=== PATIENT | female | born 1995 | race Caucasian/White ===

== ENCOUNTER 2021-04-14 14:06 | Outpatient (REF) | payer OTHER, SELFPAY ==
--- NOTE | ~2021-04-14 | US_ITS ---
EXAMINATION: US PELVIS CLINICAL INFORMATION: Pelvic pain COMPARISON: None TECHNIQUE: Ultrasound of the pelvis is performed using both transabdominal and transvaginal transducers along with Doppler. Transvaginal imaging is performed due to inadequate visualization transabdominally. FINDINGS: The uterus is anteverted and measures 8.3 x 3.3 x 5.2 cm in dimension. No focal uterine lesion is seen. Endometrial thickness is normal measuring 0.7 cm. The ovaries are normal-appearing. The right ovary measures 3.7 x 2.2 x 2.3 cm. The left ovary measures 3.7 x 1.7 x 2.6 cm. There is a small amount of fluid in the pelvis. US/US pelvic and transvaginal IMPRESSION: Normal pelvic ultrasound.
[2021-04-14 16:26] LABS: MANUAL DIFF FLAG NO
[2021-04-14 16:32] LABS: Basophils Percent Auto 0.4 % (0-2); Eosinophils Absolute Auto 0.1 X10*3/uL (0.0-0.4); Eosinophils Percent Auto 0.5 % (0-4); Hematocrit 40.8 % (37.0-47.0); Hemoglobin 13.6 g/dl (12.0-16.0); Imm Gran Abs Auto 0.04 X10*3/uL (0.00-0.03); Imm Gran Pct Auto 0.4 % (0.0-0.4); Lymphocytes Absolute Auto 2.1 X10*3/uL (1.2-4.9); Lymphocytes Percent Auto 20.3 % (20-40); Mean Corpuscular HGB Conc 33.3 g/dl (31.0-35.0); Mean Corpuscular Hemoglobin 29.9 pg (27.0-33.0); Mean Corpuscular Volume 89.7 fL (80.0-98.0); Mean Platelet Volume 12.1 fL (9.4-12.3); Monocytes Absolute Auto 0.9 X10*3/uL (0.1-1.2); Neutrophils Absolute Auto 7.1 x10*3/uL (2.0-8.3); Neutrophils Percent Auto 69.4 % (45-73); Platelet Count 272 X10*3/uL (160-400); Red Blood Count 4.55 X10*6/uL (4.20-5.50); Red Cell Distribution Width 11.4 % (11.0-16.0); White Blood Count 10.2 X10*3/uL (4.8-10.8)
== END 2021-04-14 14:07 | disposition home or self-care (01) ==
LOC: HO.HMGCLDS 14:06
PROVIDERS: PCP Internal Medicine; Visit Provider Internal Medicine
DX: R10.31 Right lower quadrant pain (principal)
CPT/HCPCS: 36415; 76830; 76856; 85025

== ENCOUNTER 2023-07-03 11:28 | Outpatient (AMB) | payer OTHER, SELFPAY ==
--- NOTE | 2023-07-03 11:30 | MHC.PC.OV ---
Vital Signs 07/03/23 11:33 Height 5 ft 3 in Weight 156 lb BMI 27.6 BP 112/60 Blood Pressure Location Lt brachial Position Sitting Pulse 92 Pulse Source Pulse Oximeter Pulse Oximetry (%) 97 Oxygen Delivery Method Room Air Intake Visit Reasons: Anxiety Intake Note: Pt is here today to f/u anxiety Allergies amoxicillin [AMOXICILLIN] Allergy (Intermediate, Unverified 07/03/23 12:32) HIVES cephalexin Allergy (Unknown, Verified 07/03/23 12:32) hives From KEFLEX Allergy (Intermediate, Uncoded 07/03/23 12:32) HIVES Medication List - Last Reconciled 07/03/23 by Nickie Sandy MD escitalopram oxalate (Lexapro) 20 mg PO DAILY norethindrone-ethin estradiol 0.5-35 mg-mcg (Necon) 1 tab PO DAILY Tobacco use date assessed: 07/03/23 Dental Screening Dental Screen Date: 07/03/23 Did you have a dental visit in the last 12 months?: No Was dental information given to patient?: No HPI Anxiety HPI Details 28-year-old lady with anxiety depression, currently on escitalopram for several years now previously being followed online by therapist and psychiatrist , here today complaining of worsening anxiety attacks. She states that the main root of her anxiety is dealing with her [id number] , who lives in the apartment above hers. She has never had a warm relationship with her but has been getting worse lately. Patient states that her mother in law finds fault with everything she does, and does not really get any support from her boyfriend. She would like a referral to see a therapist and is thinking about getting couples counseling, to involve her boyfriend, so that he sees it from her perspective. [facility] Medical History (Updated 07/03/23 @ 14:08 by Nickie Sandy MD) Mixed anxiety depressive disorder Right lower quadrant abdominal pain Right ACL tear History of depression History of anxiety Family History Father Migraine Dyslipidemia Diabetes HTN (hypertension) Mother No problems noted. Sister ADD (attention deficit disorder) Maternal Grandmother Asthma Social History Housing: House Patient Tobacco Use Status: Former Tobacco user e-Cigarette/Vaping Use: Never Used service: No Current occupational status: unemployed Cognitive needs: No Hearing needs: No Vision needs: Yes Questionnaire PHQ-9 Over the last 2 weeks, how often have you been bothered by any of the following problems? 1. Little interest or pleasure in doing things: several days 2. Feeling down, depressed, or hopeless: more than half the days 3. Trouble falling or staying asleep, or sleeping too much: nearly every day 4. Feeling tired or having little energy: more than half the days 5. Poor appetite or overeating: more than half the days 6. Feeling bad about yourself - or that you are a failure or have let yourself or your family down: more than half the days 7. Trouble concentrating on things, such as reading the newspaper or watching television: more than half the days 8. Moving or speaking so slowly that other people could have noticed. Or the opposite - being so fidgety or restless that you have been moving around a lot more than usual: not at all 9. Thoughts that you would be better off or of hurting yourself in some way: not at all Total score: 14 Depression Screening Interpretation: Positive (Referred to Jerilyn for assistance in getting counseling, interested in getting couples therapy) Depression Screening Follow-up: Existing condition, In treatment and Community Mental Health Worker F/U Depression Screening Done: Yes 24741 - PHQ-9 Billing: Yes Source: Developed by Drs. Bautista Medel, Tiera Osullivan, Shorty Murry and colleagues, with an educational alfredo from [employer]. Thrive Questionnaire Date Thrive assessed: 07/03/23 I am a: Patient What is your living situation today?: I have a steady place to live Within the past 12 months, did the food you bought not last and you didn't have the money to get more?: Never true Within the past 12 months, did you worry whether your food would run out before you got money to buy more?: Never true Do you have trouble paying for medicines?: No Do you have trouble getting transportation to medical appointments?: No Do you have trouble paying your heating and electricity bill?: No Do you have trouble taking care of your child, family member or friend?: No Do you have trouble with day-to-day activities such as bathing, preparing meals, shopping, managing finances, etc.?: No Are you currently unemployed and looking for a job?: No Are you interested in more education?: No THRIVE Score: 0 AUDIT C Alcohol Use Questionnaire (AUDIT-C) 1. How often do you have a drink containing alcohol?: Monthly or less 2. How many drinks containing alcohol do you have on a typical day when you are drinking?: 1 or 2 3. How often do you have six or more drinks on one occasion?: Never Total Score: 1 CYNTHIA-7 AMB Questionnaire CYNTHIA-7 Date CYNTHIA - 7 assessed: 07/03/23 Feeling nervous, anxious, or on edge: 2 = More than half the days Not being able to stop or control worryin = More than half the days Worrying too much about different things: 1 = Several days Trouble relaxin = Nearly every day Being so restless that it is hard to sit still: 1 = Several days Becoming easily annoyed or irritable: 2 = More than half the days Feeling afraid as if something awful might happen: 0 = Not at all Total CYNTHIA-7 score (0-4 normal; 5-9 mild; 10-14 moderate; 15-21 severe): 11 Source: Developed by Drs. Bautista Medel, Tiera Osullivan, Shorty Murry and colleagues, with an educational alfredo from [employer]. CYNTHIA-7 Assessment Billing CYNTHIA-7 Assessment Tool: CYNTHIA-7 Assessment 43031 Review of Systems Const All systems reviewed & are unremarkable except as noted in HPI and below Physical exam (Primary Care) Vital Signs: Last Vital Signs Pulse 92 07/03/23 11:33 BP 112/60 07/03/23 11:33 Pulse Ox 97 07/03/23 11:33 Oxygen Delivery Method Room Air 07/03/23 11:33 BMI result Body Mass Index 27.6 Tobacco/Smoking Status: Tobacco use Status Tobacco use date assessed 07/03/23 07/03/23 11:38 Patient Tobacco Use Status Former Tobacco user 07/03/23 11:31 e-Cigarette/Vaping Use Never Used 07/03/23 11:38 PHQ-9: PHQ-9 Score PHQ-9: Total score 14 07/03/23 12:40 Depression Screening Interpretation: Positive (Referred to Jerilyn for assistance in getting counseling, interested in getting couples therapy) Depression Screening Follow-up: Existing condition, In treatment and Community Mental Health Worker F/U Thrive Assessment: Date of Thrive Assessment Date Thrive assessed 07/03/23 07/03/23 12:40 Const General: comfortable and no acute distress Orientation/consciousness: patient oriented x3 Resp Auscultation: clear to auscultation bilaterally Cardio Rate: regular rate Rhythm: regular rhythm Heart sounds: S1 normal heart sound present and S2 normal heart sound present Neuro General: patient oriented x3 Psych Appearance: grossly normal and well kempt Mental Status: mental status grossly normal Speech and movement: Normal speech and movement present Affect: Anxious affect present Attitude: cooperative Thought process: Normal thought process present Thought content: Normal thought content present Assessment and Plan Assessment & Plan (1) Mixed anxiety depressive disorder: Code(s): F41.8 - Other specified anxiety disorders Plan: Continued on escitalopram 20 mg per tablet taken 1 tablet once a day, prescription sent for 90 with 3 refills. Referred to Jerilyn Thompson for assistance in getting in to be seen by a therapist, patient also interested in getting couples counseling Medications: New escitalopram oxalate (Lexapro) 20 mg PO DAILY 90 tabs 3RF Coding Level of Care Code Est Pt Level 3 (69128) Diagnoses Mixed anxiety depressive disorder F41.8 Additional Codes CYNTHIA-7 Assessment Billing - CYNTHIA-7 Assessment Tool: CYNTHIA-7 Assessment 44380 ([id number])
[2023-07-03 11:33] VITALS: BP 112/60; PULSE 92; O2SAT 97; BMI 27.6
--- NOTE | 2023-07-03 12:31 | MHC.AM.IAPNC ---
IAP Other Agencies/Support IAP Other Agencies/Support Other Agencies/Community Supports/Resources Supporting IAP: [] None Reported [] No Change Agency Name [] Contact and Title [] Services Currently Provided [] Release Signed [] Yes [] No Agency Name [] Contact and Title [] Services Currently Provided [] Release Signed [] Yes [] No Agency Name [] Contact and Title [] Services Currently Provided [] Release Signed [] Yes [] No Agency Name [] Contact and Title [] Services Currently Provided [] Release Signed [] Yes [] No
== END 2023-07-03 12:41 | disposition home or self-care (01) ==
PROVIDERS: PCP Internal Medicine; Visit Provider Internal Medicine
DX: F41.8 Other specified anxiety disorders (principal)
CPT/HCPCS: 99213

== ENCOUNTER 2023-08-10 09:12 | Outpatient (AMB) | payer OTHER, SELFPAY ==
--- NOTE | 2023-08-10 09:31 | MHC.OFFWIV ---
Intake Vital Signs 08/10/23 09:32 Height 5 ft 3 in Weight 158 lb BMI 28.0 BP 110/72 Blood Pressure Location Lt brachial Position Sitting Pulse 92 Pulse Source Pulse Oximeter Temp 98.3 F Temp Source Oral Pulse Oximetry (%) 98 Intake Visit Reasons: EST/dry spots on fingers (lobby) Intake Note: Pt is here today c/o ? fungus on bilateral fingers around nail dry Patient Tobacco Use Status: Former Tobacco user Allergies amoxicillin [AMOXICILLIN] Allergy (Intermediate, Verified 08/10/23 09:45) HIVES cephalexin Allergy (Unknown, Verified 08/10/23 09:45) hives From KEFLEX Allergy (Intermediate, Uncoded 08/10/23 09:35) HIVES Medication List - Last Reconciled 08/10/23 by SCAR Dickens-BRE escitalopram oxalate (Lexapro) 20 mg PO DAILY norethindrone-ethin estradiol 0.5-35 mg-mcg (Necon) 1 tab PO DAILY HPI HPI Comments History of Present Illness Details Here here today with complaints of a itchy rash around her cuticles of both hands that started about 2 weeks ago. She does get her nails done by reports this is nothing new. Going to the same salon. Even tried removing the fake nails to see if this would help her skin condition unfortunately it did not. She did have some clear drainage from the blister-like areas. She tried [id number] treatments such as hydrocortisone, Aveeno without relief. Has known eczema. In addition she cut her right thumb finger while cutting potatoes a few days ago. Has been using Neosporin at home. Up-to-date on tetanus shot. [facility] Medical History (Updated 08/10/23 @ 09:53 by SCAR Dickens-BRE) Mixed anxiety depressive disorder Right lower quadrant abdominal pain Right ACL tear History of depression History of anxiety Family History Father Migraine Dyslipidemia Diabetes HTN (hypertension) Mother No problems noted. Sister ADD (attention deficit disorder) Maternal Grandmother Asthma Social History Housing: House Patient Tobacco Use Status: Former Tobacco user e-Cigarette/Vaping Use: Never Used service: No Current occupational status: unemployed Cognitive needs: No Hearing needs: No Vision needs: Yes Review of Systems Const All systems reviewed & are unremarkable except as noted in HPI and below Physical Exam Vital Signs: Last Vital Signs Temp 98.3 F 08/10/23 09:32 Pulse 92 08/10/23 09:32 BP 110/72 08/10/23 09:32 Pulse Ox 98 08/10/23 09:32 BMI result Body Mass Index 28.0 Assessment & Plan Assessment & Plan (1) Eczema: Code(s): L30.9 - Dermatitis, unspecified Qualifiers: Eczema type: unspecified Qualified Code(s): L30.9 - Dermatitis, unspecified Plan: . (2) Abrasion: Code(s): T14.8XXA - Other injury of unspecified body region, initial encounter Plan: This note is constructed using voice recognition software. While every effort has been made to ensure accuracy in bottom liquor attendant, still errors may have been included Sometimes, these errors may affect the content or meaning of the given sentence . Medications: New triamcinolone acetonide 0.1% 1 appl topical BID 15 grams 2RF mupirocin 2% Apply to fingertips until healed 1 appl topical BID 15 grams 0RF Patient Instructions: The rash today looks like a dyshidrotic eczema. We will treat with a topical steroid cream twice per day. I have also prescribed mupirocin as she did state that the blisters had some drainage. She can mix the 2 creams together and apply twice per day until the skin is clear. Educated on reasons to return to the clinic. Advised to keep hands clean and dry. Use an ointment based moisturizer to ensure that her hands do not dry or cracked. Coding Level of Care Code Est Pt Level 4 (52114) Diagnoses Eczema, unspecified type L30.9 Eczema type: unspecified Abrasion T14.8XXA
[2023-08-10 09:32] VITALS: BP 110/72; PULSE 92; TEMP 36.8; O2SAT 98; BMI 28.0
== END 2023-08-10 10:10 | disposition home or self-care (01) ==
PROVIDERS: PCP Internal Medicine; Visit Provider Nurse Practitioner Family
DX: L30.9 Dermatitis, unspecified (principal); T14.8XXA Other injury of unspecified body region, initial encounter
CPT/HCPCS: 99051; 99214

== ENCOUNTER 2023-08-21 08:30 | Outpatient (AMB) | payer OTHER, SELFPAY ==
[2023-08-21 08:33] VITALS: BP 112/70; PULSE 74; TEMP 36.6; O2SAT 98; BMI 28.0
--- NOTE | 2023-08-21 08:33 | MHC.OFFWIV ---
Intake Vital Signs 08/21/23 08:33 Height 5 ft 3 in Weight 158 lb BMI 28.0 BP 112/70 Blood Pressure Location Rt brachial Position Sitting Pulse 74 Pulse Source Pulse Oximeter Temp 97.8 F Temp Source Oral Pulse Oximetry (%) 98 Oxygen Delivery Method Room Air Intake Visit Reasons: EP rash on hands going up arms Intake Note: pt is here for rash on hands going up arms Patient Tobacco Use Status: Former Tobacco user Allergies amoxicillin [AMOXICILLIN] Allergy (Intermediate, Verified 08/21/23 08:33) HIVES cephalexin Allergy (Unknown, Verified 08/21/23 08:33) hives From KEFLEX Allergy (Intermediate, Uncoded 08/10/23 09:35) HIVES Medication List - Last Reconciled 08/21/23 by Chepe Jules MD escitalopram oxalate (Lexapro) 20 mg PO DAILY mupirocin 2% 1 appl topical BID norethindrone-ethin estradiol 0.5-35 mg-mcg (Necon) 1 tab PO DAILY triamcinolone acetonide 0.1% 1 appl topical BID Do you need a note to return to daycare/school/sports/work: Yes HPI EP rash on hands going up arms HPI Details 28 year old female patient had her nails done on August 06 and after that started having rash around the nails Patient does have a history of eczema when she was a child Patient was evaluated and was prescribed cream which did help however she continued to have the rash which is also extending to her wrist She has pictures from previous visit on August 06, rash is symmetrical both hands close toenails where patient has artificial nails Explained to patient that this looks like a contact dermatitis. Since the rash spread I am treating her with prednisone 20 mg once a day for 5 days And clobetasol cream that she may use at night until rash resolves. Rash is only located on both hands and little bit on the wrist and palms Review system there is no fever no chills no joint pains no headache no nausea no vomiting PFSH Medical History Mixed anxiety depressive disorder Right lower quadrant abdominal pain Right ACL tear History of depression History of anxiety Family History Father Migraine Dyslipidemia Diabetes HTN (hypertension) Mother No problems noted. Sister ADD (attention deficit disorder) Maternal Grandmother Asthma Social History Housing: House Patient Tobacco Use Status: Former Tobacco user e-Cigarette/Vaping Use: Never Used service: No Current occupational status: unemployed Cognitive needs: No Hearing needs: No Vision needs: Yes Review of Systems Const All systems reviewed & are unremarkable except as noted in HPI and below Physical Exam Vital Signs: Last Vital Signs Temp 97.8 F 08/21/23 08:33 Pulse 74 08/21/23 08:33 BP 112/70 08/21/23 08:33 Pulse Ox 98 08/21/23 08:33 Oxygen Delivery Method Room Air 08/21/23 08:33 BMI result Body Mass Index 28.0 Const General: no acute distress Orientation/consciousness: patient oriented x3 Eyes General: appearance normal, both eyes and all related structures Resp Effort & Inspection: normal respiratory effort and able to speak in complete sentences Skin Other: Maculopapular rash close to nails and close to wrist palmar aspect both hands Neuro General: patient oriented x3 Psych Mental Status: mental status grossly normal Assessment & Plan Assessment & Plan (1) Contact dermatitis and eczema: Code(s): L25.9 - Unspecified contact dermatitis, unspecified cause Plan 28 year old female patient had her nails done on August 06 and after that started having rash around the nails Patient does have a history of eczema when she was a child Patient was evaluated and was prescribed cream which did help however she continued to have the rash which is also extending to her wrist She has pictures from previous visit on August 06, rash is symmetrical both hands close toenails where patient has artificial nails Explained to patient that this looks like a contact dermatitis. Since the rash spread I am treating her with prednisone 20 mg once a day for 5 days And clobetasol cream that she may use at night until rash resolves. Rash is only located on both hands and little bit on the wrist and palms Review system there is no fever no chills no joint pains no headache no nausea no vomiting Medications: New prednisone 20 mg PO DAILY 5 days 5 tabs 0RF clobetasol 0.05% 1 appl topical BID 2 weeks 50 grams 0RF Coding Level of Care Code Est Pt Level 3 (99656) Diagnoses Contact dermatitis and eczema L25.9
== END 2023-08-21 09:18 | disposition home or self-care (01) ==
PROVIDERS: PCP Internal Medicine; Visit Provider Internal Medicine
DX: L25.9 Unspecified contact dermatitis, unspecified cause (principal)
CPT/HCPCS: 99213

== ENCOUNTER 2023-09-06 09:52 | Outpatient (AMB) | payer OTHER, SELFPAY ==
[2023-09-06 10:22] VITALS: BP 120/70; PULSE 77; TEMP 36.6; O2SAT 97; BMI 28.5
--- NOTE | 2023-09-06 10:22 | AM.OFFWIN_ITS ---
Intake Vital Signs 09/06/23 10:22 Height 5 ft 3 in Weight 161 lb BMI 28.5 BP 120/70 Blood Pressure Location Lt brachial Position Sitting Pulse 77 Pulse Source Pulse Oximeter Temp 97.9 F Temp Source Temporal Artery Scan Pulse Oximetry (%) 97 Oxygen Delivery Method Room Air Intake Visit Reasons: EP Rash on fingers Intake Note: pt is here today for rash on finger started 08/20 Patient Tobacco Use Status: Former Tobacco user Allergies amoxicillin [AMOXICILLIN] Allergy (Intermediate, Verified 09/06/23 10:26) HIVES cephalexin Allergy (Unknown, Verified 09/06/23 10:26) hives From KEFLEX Allergy (Intermediate, Uncoded 09/06/23 10:26) HIVES Do you need a note to return to daycare/school/sports/work: No HPI HPI Comments History of Present Illness Details Patient is a 28-year-old female complaining of a rash on her fingers for several weeks. She states she did get a 5 day burst of prednisone which seemed to help but then once she stopped it, it came back. She does admit to wearing press on nails. She said she removed them for a week or 2 but she has been back on today. She states the rash is a little bit painful and a little bit itchy. [facility] Medical History Mixed anxiety depressive disorder Right lower quadrant abdominal pain Right ACL tear History of depression History of anxiety Family History Father Migraine Dyslipidemia Diabetes HTN (hypertension) Mother No problems noted. Sister ADD (attention deficit disorder) Maternal Grandmother Asthma Social History Housing: House Patient Tobacco Use Status: Former Tobacco user e-Cigarette/Vaping Use: Never Used service: No Current occupational status: unemployed Cognitive needs: No Hearing needs: No Vision needs: Yes Review of Systems Const All systems reviewed & are unremarkable except as noted in HPI and below Physical Exam Vital Signs: Last Vital Signs Temp 97.9 F 09/06/23 10:22 Pulse 77 09/06/23 10:22 BP 120/70 09/06/23 10:22 Pulse Ox 97 09/06/23 10:22 Oxygen Delivery Method Room Air 09/06/23 10:22 BMI result Body Mass Index 28.5 Const General: cooperative, healthy appearing, comfortable, no acute distress and well developed Orientation/consciousness: patient oriented x3 Limitations: no limitations HEENT Head: Yes normal to inspection Eyes General: appearance normal, both eyes and all related structures Neck Neck: Yes normal visual inspection and Yes full ROM Skin Rashes: rashes noted (small round bumps, not fluctuant, no weeping, at distal fingers below nails) Neuro General: patient oriented x3 Assessment & Plan Assessment & Plan (1) Contact dermatitis and eczema: Code(s): L25.9 - Unspecified contact dermatitis, unspecified cause Plan: Recommended patient stop using the press on nails and sent prednisone taper to pharmacy. Plan See above Medications: New prednisone see taper instructions 10 mg PO DIRECTED 21 ea 0RF prednisone see taper instructions 10 mg PO DIRECTED 21 ea 0RF Coding Level of Care Code Est Pt Level 2 (09448) Diagnoses Contact dermatitis and eczema L25.9
== END 2023-09-06 11:41 | disposition home or self-care (01) ==
PROVIDERS: PCP Internal Medicine; Visit Provider Physician Assistant
DX: L25.9 Unspecified contact dermatitis, unspecified cause (principal)
CPT/HCPCS: 99212

== ENCOUNTER 2023-10-08 13:27 | Outpatient (AMB) | payer OTHER, SELFPAY ==
[2023-10-08 13:29] VITALS: BP 120/80; PULSE 82; O2SAT 99; BMI 28.9
--- NOTE | 2023-10-08 13:29 | A.OFFPC_ITS ---
Vital Signs 10/08/23 13:29 Height 5 ft 3 in Weight 163 lb BMI 28.9 BP 120/80 Blood Pressure Location Rt brachial Position Sitting Pulse 82 Pulse Source Pulse Oximeter Pulse Oximetry (%) 99 Oxygen Delivery Method Room Air Intake Visit Reasons: request referral for derm rash on hands Intake Note: Pt is here today to request referral for derm rash on hands (pt is 11 wks into her ) Allergies amoxicillin [AMOXICILLIN] Allergy (Intermediate, Verified 10/08/23 14:13) HIVES cephalexin Allergy (Unknown, Verified 10/08/23 14:13) hives From KEFLEX Allergy (Intermediate, Uncoded 10/08/23 14:13) HIVES Medication List - Last Reconciled 10/08/23 by Nickie Sandy MD escitalopram oxalate (Lexapro) 20 mg PO DAILY mupirocin 2% 1 appl topical BID vit no.[id number] 27 mg iron- 800 mcg ( Vitamin) 1 tab PO DAILY triamcinolone acetonide 0.1% 1 appl topical BID Tobacco use date assessed: 10/08/23 Dental Screening Dental Screen Date: 10/08/23 Did you have a dental visit in the last 12 months?: No Did you have a dental problem in the last 6 months where you did not have access to dental care?: No Was dental information given to patient?: No HPI request referral for derm rash on hands HPI Details 28-year-old lady currently 11 weeks preg nant, here today complaining of recurrent itchy vesicular rash appearing on fingers, interdigital areas, palms of both hands which has been present now for the last 3 months. She has been seen at the walk-in for the same complaint and was prescribed mupirocin cream, prednisone p.o. and later was seen again and prescribed triamcinolone 0.1% ointment. She has been avoiding all makeup, has only been moisturizing using Aquaphor, which has not afforded much improvement. Here today requesting referral for Dermatology evaluation. [facility] Medical History Vesicular rash Mixed anxiety depressive disorder Right ACL tear Family History Father Migraine Dyslipidemia Diabetes HTN (hypertension) Mother No problems noted. Sister ADD (attention deficit disorder) Maternal Grandmother Asthma Social History Housing: House Patient Tobacco Use Status: Former Tobacco user e-Cigarette/Vaping Use: Never Used service: No Current occupational status: unemployed Cognitive needs: No Hearing needs: No Vision needs: Yes Questionnaire Thrive Questionnaire Date Thrive assessed: 07/03/23 CYNTHIA-7 AMB Questionnaire CYNTHIA-7 Date CYNTHIA - 7 assessed: 07/03/23 Source: Developed by Drs. Bautista Medel, Tiera Osullivan, Shorty Murry and colleagues, with an educational alfredo from [employer]. Review of Systems Const All systems reviewed & are unremarkable except as noted in HPI and below Physical exam (Primary Care) Vital Signs: Last Vital Signs Pulse 82 10/08/23 13:29 BP 120/80 10/08/23 13:29 Pulse Ox 99 10/08/23 13:29 Oxygen Delivery Method Room Air 10/08/23 13:29 BMI result Body Mass Index 28.9 Tobacco/Smoking Status: Tobacco use Status Tobacco use date assessed 10/08/23 10/08/23 13:37 Patient Tobacco Use Status Former Tobacco user 10/08/23 13:37 e-Cigarette/Vaping Use Never Used 10/08/23 13:37 Thrive Assessment: Date of Thrive Assessment Date Thrive assessed 07/03/23 10/08/23 13:37 Const Other: Alert oriented x3, no acute distress noted ambulatory normal Skin Other: Fluid-filled vesicular lesions present on interdigital areas and palms of both hands, and along the ventral crease of both wrists. 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 Patient advised to avoid contact to any nickel, cobalt chromium, advised to try using Cetaphil cream instead of Aquaphor, and continue with triamcinolone acetonide 0.1% cream applied twice a day to affected area for no more than 10 days at a time. Referred to [facility] for further evaluation management Orders: Referrals Dermatology Referral R23.8 - Other skin changes Coding Level of Care Code Est Pt Level 3 (57093) Diagnoses Vesicular rash R23.8
== END 2023-10-08 14:33 | disposition home or self-care (01) ==
PROVIDERS: PCP Internal Medicine; Visit Provider Internal Medicine
DX: R23.8 Other skin changes (principal)
CPT/HCPCS: 99213

== ENCOUNTER 2024-11-11 09:02 | Outpatient (REF) | payer OTHER, SELFPAY ==
--- OUTSIDE RECORDS SUMMARY | 2024-11-11 10:10 | XMS_ITS | Encounter Summary ---
Author Organization [facility] Address [address] [place] [address] Phone Care Team Providers Care Tree Specialist Name Role Phone Leah Bailey MD Primary Care Provider Encounter Details Date Type Department Care Team (Late st Contact Info) Description 11/15/2016 Conversion Encounter [facility] [address] [place] [address] Social History Tobacco Use Types Packs/Day Years Used Date Smoking Tobacco: Never Comments:Never smoker Comments Unknown Sex and Gender Information Value Date Recorded Sex Assigned at Not on file Legal Sex Female 4:55 PM EDT Gender Identity Not on file Sexual Orientation Not on file documented as of this encounter Plan of Treatment Not on file documented as of this encounter Visit Diagnoses Not on filedocumented in this encounter Care Teams Tree Specialist Relationship Specialty Start Date End Date Leah Bailey MD [address] [place] [address] PCP - General 11/09/16 07/11/22 documented as of this encounter
[2024-11-11 13:42] LABS: Hematocrit 39.5 % (37.0-47.0); Hemoglobin 13.2 g/dl (12.0-16.0)
[2024-11-11 14:22] LABS: Alanine Aminotransferase 25 U/L (0-31); Anion Gap 12 (12-20); Aspartate Amino Transferase 26 U/L (5-31); Blood Urea Nitrogen 12 mg/dL (9-16); Calcium 9.0 mg/dL (8.4-10.2); Carbon Dioxide 26 mmol/L (22-29); Chloride 107 mmol/L (96-108); Cholesterol 145 mg/dL (<200); Estimated Glomerular Filt Rate > 60; HDL Cholesterol 50 mg/dL (>40); Potassium 3.9 mmol/L (3.3-5.1); Sodium 141 mmol/L (135-145); Triglycerides 91 mg/dL (<150)
== END 2024-11-11 09:03 | disposition home or self-care (01) ==
LOC: HO.HMGCLDS 09:02
PROVIDERS: PCP Internal Medicine; Visit Provider Internal Medicine
DX: Z00.01 Encounter for general adult medical examination with abnormal findings (principal); O99.345 Other mental disorders complicating the puerperium; F41.8 Other specified anxiety disorders; Z71.89 Other specified counseling; Z78.9 Other specified health status
CPT/HCPCS: 36415; 80048; 80061; 82306; 84450; 84460; 85014; 85018; 96127; 99395; 99497

== ENCOUNTER 2024-11-11 09:02 | Outpatient (AMB) | payer OTHER, SELFPAY ==
[2024-11-11 09:05] VITALS: BP 110/66; PULSE 78; RESP 15; TEMP 36.8; O2SAT 98; BMI 36.7
--- NOTE | 2024-11-11 09:05 | MHC.PC.OV ---
Vital Signs 11/11/24 09:05 Height 5 ft 3 in Weight 207 lb BMI 36.7 BP 110/66 Blood Pressure Location Rt brachial Position Sitting Respiration 15 Pulse 78 Pulse Source Pulse Oximeter Temp 98.2 F Temp Source Oral Pulse Oximetry (%) 98 Oxygen Delivery Method Room Air Intake Visit Reasons: ANNUAL PE Intake Note: Pt is here today for her PE: Allergies amoxicillin (AMOXICILLIN) Allergy (Intermediate, Verified 11/11/24 09:24) HIVES cephalexin Allergy (Unknown, Verified 11/11/24 09:24) hives From KEFLEX Allergy (Intermediate, Uncoded 11/11/24 09:24) HIVES Medication List - Last Reconciled 11/11/24 by Nickie Sandy MD escitalopram oxalate (Lexapro) 20 mg PO DAILY mometasone 0.1% 1 appl topical DAILY norethindrone-ethin estradiol 0.5-35 mg-mcg (Nortrel) 1 tab PO DAILY vit no.[id number] 27 mg iron- 800 mcg ( Vitamin) 1 tab PO DAILY Tobacco use date assessed: 11/11/24 Dental Screening Dental Screen Date: 11/11/24 Did you have a dental visit in the last 12 months?: Yes Did you have a dental problem in the last 6 months where you did not have access to dental care?: Yes Was dental information given to patient?: Patient has dentist HPI ANNUAL PE HPI Details 29-year-old lady here today for her physical exam, currently six-months with 2nd child, currently . HPI Comments History of Present Illness Details 29-year-old lady here today for her physical exam. She has history of mixed anxiety and depression, currently stable controlled on escitalopram, has been on it even during her . She has six-months and is currently her 2nd child.. She has been feeling well, with no other complaints at present time. [facility] Medical History (Updated 11/11/24 @ 09:45 by Nickie Sandy MD) History of tear of ACL (anterior cruciate ligament) Vesicular rash Mixed anxiety depressive disorder Family History Father Migraine Dyslipidemia Diabetes HTN (hypertension) Mother No problems noted. Sister ADD (attention deficit disorder) Maternal Grandmother Asthma Social History Housing: House Patient Tobacco Use Status: Former Tobacco user e-Cigarette/Vaping Use: Never Used service: No Current occupational status: unemployed Cognitive needs: No Hearing needs: No Vision needs: Yes Questionnaire PHQ-9 Over the last 2 weeks, how often have you been bothered by any of the following problems? 1. Little interest or pleasure in doing things: not at all 2. Feeling down, depressed, or hopeless: not at all 3. Trouble falling or staying asleep, or sleeping too much: not at all 4. Feeling tired or having little energy: several days 5. Poor appetite or overeating: several days 6. Feeling bad about yourself - or that you are a failure or have let yourself or your family down: not at all 7. Trouble concentrating on things, such as reading the newspaper or watching television: not at all 8. Moving or speaking so slowly that other people could have noticed. Or the opposite - being so fidgety or restless that you have been moving around a lot more than usual: not at all 9. Thoughts that you would be better off or of hurting yourself in some way: not at all Total score: 2 Depression Screening Interpretation: Negative (Controlled on escitalopram) Depression Screening Done: Yes 28693 - PHQ-9 Billing: Yes Source: Developed by Drs. Bautista Medel, Tiera Osullivan, Shorty Murry and colleagues, with an educational alfredo from [employer]. Thrive Questionnaire Date Thrive assessed: 11/04/24 I am a: Patient What is your living situation today?: I have a steady place to live Within the past 12 months, did the food you bought not last and you didn't have the money to get more?: Never true Within the past 12 months, did you worry whether your food would run out before you got money to buy more?: Never true Do you have trouble paying for medicines?: No Do you have trouble getting transportation to medical appointments?: No Do you have trouble paying your heating and electricity bill?: No Do you have trouble taking care of your child, family member or friend?: No Do you have trouble with day-to-day activities such as bathing, preparing meals, shopping, managing finances, etc.?: No Are you currently unemployed and looking for a job?: I choose not to answer this question Are you interested in more education?: I choose not to answer this question Please select the resources that you would like help with: None Currently or been in a relationship where the following occur: No concerns reported THRIVE Score: 0 AUDIT C Alcohol Use Questionnaire (AUDIT-C) 1. How often do you have a drink containing alcohol?: Never 2. How many drinks containing alcohol do you have on a typical day when you are drinking?: 1 or 2 3. How often do you have six or more drinks on one occasion?: Never Total Score: 0 CYNTHIA-7 AMB Questionnaire CYNTHIA-7 Date CYNTHIA - 7 assessed: 07/03/23 Feeling nervous, anxious, or on edge: 1 = Several days Not being able to stop or control worryin = Not at all Worrying too much about different things: 0 = Not at all Trouble relaxin = Several days Being so restless that it is hard to sit still: 1 = Several days Becoming easily annoyed or irritable: 1 = Several days Feeling afraid as if something awful might happen: 0 = Not at all Total CYNTHIA-7 score (0-4 normal; 5-9 mild; 10-14 moderate; 15-21 severe): 4 Source: Developed by Drs. Bautista Medel, Tiera Osullivan, Shorty Murry and colleagues, with an educational alfredo from [employer]. CYNTHIA-7 Assessment Billing CYNTHIA-7 Assessment Tool: CYNTHIA-7 Assessment 86110 Review of Systems Const Denies body aches, Denies fatigue, Denies fever(s), Denies headache(s) and Denies weakness Eyes Details: Sees [facility] Denies itchy eyes and Reports requires corrective lenses ENT Details: Dental prophylaxis every 6 months Denies dizziness, Denies headache(s) and Denies nasal congestion Card Denies chest pain, Denies lightheadedness, Denies palpitations and Denies dyspnea Resp Denies chest congestion, Denies cough, Denies dyspnea and Denies wheezing GI Denies abdominal pain, Denies change in bowel habits and Denies heartburn Details: Goes to [facility] for her routine Pap and pelvic exam Denies hematuria, Denies urinary frequency, Denies dysuria and Denies urinary urgency Musc Reports no additional complaints Skin/Breast Denies breast pain, Denies breast mass, Denies lesions and Denies rash Neuro Denies dizziness, Denies headache(s) and Denies weakness Psych Reports no additional complaints Endo Denies fatigue, Denies polydipsia, Denies polyuria and Denies palpitations Karsten/Lymph Denies easy bruising Aller/Immun Denies itchy eyes, Denies seasonal rhinorrhea and Denies wheezing Physical exam (Primary Care) Vital Signs: Last Vital Signs Temp 98.2 F 11/11/24 09:05 Pulse 78 11/11/24 09:05 Resp 15 11/11/24 09:05 BP 110/66 11/11/24 09:05 Pulse Ox 98 11/11/24 09:05 Oxygen Delivery Method Room Air 11/11/24 09:05 BMI result Body Mass Index 36.7 Tobacco/Smoking Status: Tobacco use Status Tobacco use date assessed 11/11/24 11/11/24 09:13 Patient Tobacco Use Status Former Tobacco user 11/11/24 09:13 e-Cigarette/Vaping Use Never Used 11/11/24 09:13 PHQ-9: PHQ-9 Score PHQ-9: Total score 2 11/11/24 09:13 Depression Screening Interpretation: Negative (Controlled on escitalopram) Thrive Assessment: Date of Thrive Assessment Date Thrive assessed 11/04/24 11/11/24 09:13 Currently or been in a relationship where the following occur: No concerns reported Advance Care Planning discussion: Completed/Scanned Date of discussion: 11/11/24 Who was present: Patient Forms completed: Health Care Proxy Time spent: 16-45 minutes Actual minutes spent: 2 Const General: no acute distress Nutritional Appearance: obese Orientation/consciousness: patient oriented x3 Limitations: no limitations HENMT Ears: external ears normal, TM's normal bilaterally and EAC's normal General nose exam: Normal external nose present Face and sinus: Yes face symmetric Mouth: Normal oral and palatal mucosa present and moist mucous membranes Eyes General: appearance normal, both eyes and all related structures Neck Neck: Yes full ROM, Yes no lymphadenopathy and Yes supple Chest Chest palpation & inspection: normal inspection of the chest Breast/axilla palpation: normal palpation of the breasts Resp Auscultation: clear to auscultation bilaterally Cardio Rate: regular rate Rhythm: regular rhythm Heart sounds: S1 normal heart sound present and S2 normal heart sound present GI Palpation (GI): Soft to palpation and no masses Auscultation: normal bowel sounds General: Yes no CVA tenderness and Yes deferred (Sees [facility] for routine Pap and pelvic exam) Back/Spine/Pelvis Back: no CVA tenderness Skin General skin exam: no rashes or lesions noted Neuro General: patient oriented x3 Extrem General: Yes full ROM, Yes no joint enlargement, Yes no clubbing, cyanosis or edema, Yes no calf tenderness and Yes normal gait Psych Appearance: grossly normal and well kempt Mental Status: mental status grossly normal Speech and movement: Normal speech and movement present Affect: normal affect Coding Level of Care Code Est Pt Prev Care 18-39y(97810) Diagnoses Mixed anxiety depressive disorder F41.8 Advance directive discussed with patient Z71.89 Annual visit for general adult medical examination with abnormal findings Z00.01 Mother currently breast-feeding Z39.1 Additional Codes Vital Signs *Quality* - Advance Care Planning discussion: Completed/Scanned ([id number]) Vital Signs *Quality* - Time spent: 16-45 minutes ([id number]) PHQ-9 - 31374 - PHQ-9 Billing: Yes ([id number]) CYNTHIA-7 Assessment Billing - CYNTHIA-7 Assessment Tool: CYNTHIA-7 Assessment 21780 ([id number]) Assessment & Plan Assessment & Plan (1) Mixed anxiety depressive disorder: Code(s): F41.8 - Other specified anxiety disorders Category: Medical Plan: Continue escitalopram 10 mg daily (2) Advance directive discussed with patient: Code(s): Z71.89 - Other specified counseling Plan: Initiated the conversation about Advanced Directives. Advanced Directives help patients prepare for current and future decisions about their medical treatment and place of care. Discussed with patient that it is a process where a patients current condition and prognosis are reviewed, their wishes for information regarding their illness are elicited, and likely medical dilemmas are presented and options discussed. Healthcare proxy form completed today. The form can be amended as needed, reviewed yearly and make changes as needed (3) Annual visit for general adult medical examination with abnormal findings: Code(s): Z00.01 - Encounter for general adult medical examination with abnormal findings Plan: Will check appropriate labs. Continue regular dental prophylaxis every 6 months and routine eye exam every 2 years. Take adequate calcium in diet and vitamin-D 3 at 2000 IU per cap once a day, in addition to weight-bearing exercises to help maintain good muscle tone and weight control. Continue prenatals for now Instructed to do self-breast exam, and recommended to get yearly mammogram, starting at age 40. Goes to [facility] for routine Pap and pelvic exam, currently placed on control pills up-to-date with her Tdap, advised to get yearly flu vaccine and COVID vaccine booster (4) Mother currently breast-feeding: Code(s): Z39.1 - Encounter for care and examination of lactating mother Plan: Continue vitamins, reinforced importance to of having a healthy diet Orders: Orders Hemoglobin and Hematocrit Today F41.8 - Other specified anxiety disorders, O99.345 - Other mental disorders complicating the puerperium, Z00.01 - Encounter for general adult medical examination with abnormal findings Vitamin D 25-OH Total Today F41.8 - Other specified anxiety disorders, Z00.01 - Encounter for general adult medical examination with abnormal findings, Z78.9 - Other specified health status Medications: Refilled escitalopram oxalate (Lexapro) 20 mg PO DAILY 90 tabs 3RF
--- OUTSIDE RECORDS SUMMARY | 2024-11-11 09:24 | XMS_ITS | Clinical Summary ---
Author Organization Patient Business Ser [facility] Address [address] [place] [address] Care Team Providers Care Senior Accountant Cpa Name Role Phone Nickie Sandy MD Primary Care Provider [phone] Allergies Active Allergy Reactions Criticality Noted Date Comments Amoxicillin Low 06/02/2020 Other Reaction(s): Hives/Urticaria Since she was a baby; unknown reaction by patient Cephalexin Medium 06/10/2020 Other Reaction(s): Hives/Urticaria Medications escitalopram (LEXAPRO) 20 mg tablet Take 1 Tablet by mouth daily. Active Vitamin iron fum-folic acid 27-0.8 mg per tablet 27-0.8 MG TAB: Take 1 Tablet by mouth daily. - Oral 09/11/2023 Active mometasone (ELOCON) 0.1 % cream APPLY TO AFFECTED AREAS OF HANDS TWICE DAILY FOR 2 WEEKS, BREAK 1 WEEK, REPEAT NEEDED. 03/18/2024 Active norethindrone (JANICE,Anabel KELLY,MICRONOR ) 0.35 mg tablet Take 1 tablet (0.35 mg total) by mouth 1 (one) time each day. 28 tablet 3 10/05/2024 10/05/19 26 Active Active Problems Problem Noted Date Diagnosed Date Anxiety 06/10/2020 Overview (01/06/2024): Pt denies taking medication currently. Pt reports she was taking Lexapro a couple years ago but stopped because she did not like the way it made her feel. Was smoking MJ and it helped but stopped with . Pt reports she is doing well now. History of marijuana use 06/10/2020 Overview (03/20/2024): +on IP UDS, pt denies use since finding out she was 03/18/24: neg Resolved Problems Problem Noted Date Diagnosed Date Resolved Date 39 weeks gestation of 05/04/2024 06/12/2024 Excessive weight gain during in third trimester 05/01/2024 06/12/2024 Overview (05/01/2024): 04/2024- Counseled on excessive weight gain, encouraged healthy eating and staying active Positive GBS test 04/13/2024 06/12/2024 Overview (04/13/2024): Treat in labor Supervision of other normal , antepartum 03/18/2024 06/12/2024 Overview (05/04/2024): 1. [facility] site: [address] 2. Delivery site: [facility] 3. Mobile Mommas: no 4. Dating criteria: LMP only 5. Blood type: O+ 6. Genetic screening: Panorama: high-risk for 22q deletion; [id number] neg; AFP negative 6. GBS: Positive Date: 04/13 7. FOB name: Matthew 8. Plans A. Epidural or other pain management - B. Labor support identified - Matthew Chowdary Tdap - Date: 02/13, Flu - declined D. Breast or Bottle feed: Breast- Verbal Consent to LC contacting pt @ 30 weeks E. Baby's name - F. Circumcision - 9. Hospital Course: test positive 02/24/202404/02 Overview (04/17/2024): 1. [facility] site: [address] 2. Delivery site: [facility] 3. Mobile Mommas: No 4. Dating criteria: LMP only 5. Blood type: O+ 6. Genetic screening: Date: Result: 11/21 AFP negative 6. GBS: Positive Date: 04/10 7. FOB name: Matthew 8. Plans A. Epidural or other pain management - B. Labor support identified - FOB C. Tdap - Date:02/14/2024, Flu - Declines D. Breast or Bottle feed: Breast- Verbal Consent to LC contacting pt @ 30 weeks E. Baby's name - F. Circumcision - 9. Hospital Course: Other specified health status 01/06/2024 03/18/2024 Overview (02/14/2024): High risk of 22q deletion Normal early US, but with dating change. Per Dr. Yung, has been scheduled for detailed FAS and echo d/t increased risk of 22q. 12/03- Normal FAS, echo in 3 weeks 12/24- Echo- heart structurally normal Abnormal genetic test during 10/30/2023 06/12/2024 Overview (04/13/2024): Normal early US, but with dating change. Per Dr. Yung, has been scheduled for detailed FAS and echo d/t increased risk of 22q. She declined further genetic testing, she met with genetic counselor. 12/03- Normal FAS, echo in 3 weeks 12/24- Echo- heart structurally normal 03/13 u/s WNL, EFW 60%, no further u/s needed per [facility] 04/13- Spoke to lindy, pt ok to deliver at [facility]. History of maternal cervical laceration, currently 10/05/2023 06/12/2024 Overview (05/04/2024): Cervical lac during previous vag delivery, baby was 8.15lb Immunizations Name Administration Dates Next Due Pfizer SARS-CoV-2 COVID-19, mRNA, LNP-S, preservative free 05/25/2021 Tdap Tetanus diptheria acell ular pertussis (Boostrix; Adacel) 7yo and older 02/14/2024,10/14/2020 Surgical History Surgery Date Site/Laterality Comments OTHER SURGICAL HISTORY 2012 PROCEDURE: ---- OTHER ----; COMMENT: ACL repair OTHER SURGICAL HISTORY 1999 PROCEDURE: SC SUPRAHYOID LYMPHADENECTOMY Medical History Medical History Date Comments Anxiety DX:Anxiety Anxiety and depression DX:Anxiet y and depression History of maternal cervical laceration, currently 10/05/2023 Cervical lac during pre vious vag delivery, baby was 8.15lb Family History Medical History Relation Name Comments No Known Problems Brother Depression Father Diabetes Father Glaucoma Father Hypertension Father Sleep apnea Father Dementia Maternal Grandfather Diabetes Maternal Grandfather Diabetes Maternal Grandmother No Known Problems Mother Dementia Paternal Grandfather No Known Problems Sister 1 Pt reports all siblings have anxiety No Known Problems Sister 2 No Known Problems Sister 3 No Known Problems Sister 4 Breast cancer Neg Hx Cancer of Small Bowel Neg Hx Cervical cancer Neg Hx Colon cancer Neg Hx Kidney cancer Neg Hx Ovarian cancer Neg Hx Pancreatic cancer Neg Hx Uterine cancer Neg Hx Relation Name Status Comments Brother Alive Father Maternal Grandfather Maternal Grandmother Mother Alive Paternal Grandfather Paternal Grandmother Alive Sister 1 Alive Sister 2 Alive Sister 3 Alive Sister 4 Alive Social History Tobacco Use Types Packs/Day Years Used Date Smoking Tobacco: Never Smokeless Tobacco: Never Alcohol Use Standard Drinks/Week Comments Not Currently 0 (1 standard drink = 0.6 oz pur e alcohol) Housing Instability Answer Date Recorde d Are you worried that in the next 2 months you may not have stable housing? No 04/23/2024 Food Access & Nutrition Answer Date Rec orded Do you have access to a vari ety of food including fruits and vegetables? Yes 04/23/2024 Access to Healthcare Answer Date Record ed Within the last 3 months, ho w many times did you visit the emergency department for your medical care? 0 04/08/2024 Health Literacy Answer Date Recorded How often do you need to hav e someone help you when you read instructions, pamphlets, or other written material from your doctor or pharmacy? Never 04/23/2024 Caregiver: How often do you need to have someone help you when you read instructions, pamphlets, or other written material from your doctor or pharmacy? Not on file 04/23/2024 Financial Risk Answer Date Recorded How hard is it for you to pa y for the very basics like food, housing, medical care, and air conditioning / heating? Not very hard 04/23/2024 Transportation Answer Date Recorded Has the lack of transportati on kept you from meetings, work, or from getting things needed for daily living? No Has the lack of transportati on kept you from medical appointments or from getting medications? No 04/23/2024 Social Isolation Answer Date Recorded How often do you feel lonely or isolated from th ose around you? Never 04/23/2024 Food Risk Answer Date Recorded Within the past 12 months we worried whether our food would run out before we got money to buy more. Never true 04/23/2024 Within the past 12 months th e food we bought just didn't last and we didn't have money to get more. Never true 04/23/2024 Dependent Care Answer Date Recorded Do you need help finding or paying for care for your loved ones. For example, director of early childhood education or elderly care for an older adult? No 04/23/2024 Education Answer Date Recorded Do you think completing more education or training, like finishing a GED, going to college, or learning a trade, would be helpful for you? N/A 04/23/2024 Employment and Income Answer Date Recor ded During the last four weeks, have you been actively looking for work? Patient declined 04/23/2024 Living Situation Answer Date Recorded What is your living situation? 0 04/23/2024 Interpersonal Safety Answer Date Record ed Physical Abuse 05/04/2024 Verbal Abuse 05/04/2024 Comments No Sex and Gender Information Value Date Recorded Sex Assigned at Not on file Legal Sex Female 9:17 AM EDT Gender Identity Not on file Sexual Orientation Not on file Obstetrics History Para Term AB IAB SAB Ectopic Multiple Livin g Live Births 2 2 2 0 0 0 0 0 0 2 2 Date Outcome GA Total Labor Labor/2nd/3rd Weight Sex Type Anes PTL Melissa A1 A5 Name Clin 2020 Term 38w 5d 4054 g (143 oz) M Vag-S pont Livin g Matthew shelton, CNM Complications:None 2024 Term 39w 6d 5h 49m 5h 40m/0h 09m 3941 g (139 oz) M Vag-S pont Local N Livin g 8 9 Sebast ceferino Martin Montoya s, CNM Complications:None Delivery Location:[facility] ([facility] Last Filed Vital Signs Vital Sign Reading Time Taken Comments Blood Pressure 118/78 06/12/2024 1:04 PM EDT Pulse 71 06/12/2024 1:04 PM EDT Temperature 36.4 C (97.6 F) 05/06/2024 8:00 AM EST Respiratory Rate 14 06/12/2024 1:04 PM EDT Oxygen Saturation 98% 05/06/2024 8:00 AM EST Inhaled Oxygen Concentration - - Weight 96.2 kg (212 lb) 06/12/2024 1:04 PM EDT Height 157.5 cm (5' 2 ) 06/12/2024 1:04 PM EDT Body Mass Index 38.78 06/12/2024 1:04 PM EDT Plan of Treatment Health Maintenance Due Date Last Done Comments COVID-19 Vaccine ( season) 2023 05/25/2021, 05/04/2021 Influenza Vaccine (#1) 2024 4, 03/02/2013, 03/04/2012, Additional history exists Social Influencers of Health Screening 04/23/2025 04/23/2024 Cervical Cancer Screening: HPV 10/03/2028 10/04/2023 DTaP,Tdap,and Td Vaccines (10 - Td or Tdap) 02/13/2034 02/14/2024, 10/14/2020, 08/20/2015, Additional history exists Hepatitis B Vaccines Completed 07/24/1995, 1994, 1994 HIB Vaccines Completed 01/24/1996, 07/01, 1994, Additional history exists IPV Vaccines Completed 08/01/1999, 07/01, 1994, Additional history exists MMR Vaccines Completed 08/01/1999, 09/12/1995 Meningococcal ACWY Vaccine Aged Out 06/04/2006 N o longer eligible based on patient's age to complete this topic Varicella Vaccines Completed 08/26/2007, 07/27/1998 HPV Vaccines Completed 03/31/2009, 11/01, 08/26/2007 HIV Screening Completed 09/26/2023, 09/26/2023 Hepatitis C Screening Completed 09/26/2023 Depression Screening Completed 06/05/2024 Hepatitis A Vaccines Aged Out No long er eligible based on patient's age to complete this topic Meningococcal B Vaccine Aged Out No l onger eligible based on patient's age to complete this topic Pneumococcal Vaccine: Pediatrics (0 to 5 Years) and At-Risk Patients (6 to 49 Years) Aged Out No longer eligible based on patient's age to complete this topic RSV Immunization Patients Under 20 months Aged Out No longer eligible based on patient's age to complete this topic Procedures Procedure Name Priority Date/Time Associated Diagnosis Comments HPV Routine 10/04/2023 HEPATITIS C SCREENING Routine 09/26/2023 HIV SCREENING Routine 09/26/2023 from Last 3 Months or Most Recently Relevant to Health Maintenance Results * Cervical Cancer Screening: HPV (10/04/2023) Pathologist [facility] Cervical Cancer Screening: HPV Abstracted, No interpretation [facility] Provider HEALTH MAINTENANCE Final Result * HIV Screening (09/26/2023) Pathologist [facility] HIV Screening Abstracted [facility] Provider MD HEALTH MAINTENANCE Final Result * Hepatitis C Screening (09/26/2023) Pathologist [facility] Hepatitis C Screening Abstracted [facility] Provider HEALTH MAINTENANCE Final Result from Last 3 Months or Most Recently Relevant to Health Maintenance Insurance [facility] Advance Directives * Full Code - Confirmed (Latest Code Status on File) Date Activated Date Inactivated Comments 05/04/2024 7:45 AM 05/06/2024 6:54 PM This code stat us was ascertained in the following way: Code status discussion: discussion with patient To update the patient's code status, place a code status order. Do not modify or discontinue any currently active code status orders. Care Teams Senior Accountant Cpa Relationship Specialty Start Date End Date Nickie Sandy MD PCP - General Internal Medicine 03/24/24
== END 2024-11-11 09:43 | disposition home or self-care (01) ==
LOC: HO.HMCC 09:03
PROVIDERS: PCP Internal Medicine; Visit Provider Internal Medicine
DX: Z00.01 Encounter for general adult medical examination with abnormal findings (principal); F41.8 Other specified anxiety disorders; Z71.89 Other specified counseling; Z39.1 Encounter for care and examination of lactating mother